=== PATIENT | male | born 1965 | race Caucasian/White ===

== ENCOUNTER 2016-09-15 09:30 | Outpatient (CLI) | payer BC ==
--- NOTE | 2016-09-15 11:06 | DIAGNOSTIC IMAGING REPORT ---
PROCEDURE: MR LOWER EXT JOINT WO CONT-LT INDICATION: LT lateral knee TEARING SENSATION,PAIN TECHNIQUE: PD axial, T1 and PD fat sat coronal, PD and PD fat sat sagittal, and sagittal oblique STIR sequence through the ACL. COMPARISON: None. FINDINGS: Menisci: Minimally complex, mainly horizontal tear involving the anterior horn of the lateral meniscus. There is a small intrameniscal cyst anteriorly, and a few parameniscal cysts medially which extend towards the ACL insertion. Parameniscal cysts/fluid decompresses proximally, interdigitating between ACL fibers. Mildly complex tearing involves the body of the meniscus extending to the posterior horn. Of the medial meniscus is intact. Ligaments: Intermediate signal involving most of the anterior cruciate ligament fibers. About 20-30% of the ACL fibers maintained a normal signal. All fibers maintained a normal course. Fluid interdigitates between fibers and layers posterior. The posterior cruciate ligament is intact. Medial and lateral collateral ligament complexes as well as posterolateral corner structures are intact. Extensor mechanism: Normal. Osseous structures and articular surfaces: Trace amount of vague edema along the posterior aspect of the medial tibial plateau without fracture plane. Marrow signal is otherwise normal. Bony alignment is normal. Mild diffuse cartilage thinning in the medial compartment and mild-moderate cartilage thinning and slight irregularity in the lateral compartment. Minimal cartilage thinning in the patellofemoral compartment. Fluid, soft tissues, and joint space: Normal amount of joint fluid is present. The visible musculature and tendinous attachments are normal. No Gregory's cyst. Trace edema in the infrapatellar bursa. IMPRESSION: 1. Tearing involving the entire lateral meniscus with intrameniscal and parameniscal cysts which decompressed mesial. 2. Intermediate and fluid signal within the ACL fibers may suggest a low grade, partial-thickness tear versus fluid secondary to adjacent lateral meniscal tear. 3. Trace edema along the posterior medial tibial plateau, likely minor contusion.
== END 2016-09-15 23:00 ==
LOC: MRI SRH 09:30
DX: S83.282A Other tear of lateral meniscus, current injury, left knee, initial encounter (principal)